=== PATIENT | male | born 1980 | race Caucasian/White ===

== ENCOUNTER 2017-08-04 07:09 | Day surgery (SDC) | payer BC ==
--- NOTE | 2017-08-03 15:55 | PREOP HP ---
DATE OF SERVICE: 08/04/2017 HISTORY OF PRESENT ILLNESS: The patient is a pleasant 36-year-old who is having difficulty with right-sided low back pain along with pain in his right hip and numbness in the right inguinal region and anterior thigh. The problem started on 04/21/2017 after lifting. He rates his pain as a 2/10 currently. He says in the evenings after work the pain is an 8/10. He says he walks with a crooked posture. Lying on his left side seems to help. Walking makes it worse. He has been taking ibuprofen, Tylenol and gabapentin. He has had epidural steroid injections, which did not help him significantly. He is in physical therapy again without significant help. He relates there were similar problems in 2010, although at that time he had problems with a right footdrop and pain which would radiate all the way down to his right lower extremity. With physical therapy and epidural steroid injections that problem has improved. PAST MEDICAL HISTORY: None noted. PAST SURGICAL HISTORY: Left knee meniscus repair 08/2015. FAMILY HISTORY: Hypertension. SOCIAL HISTORY: Employed as an ED physician. . Exercises daily. Denies substance abuse. Denies tobacco use. Drinks alcohol one to two times per week. Drinks coffee daily. ALLERGIES: No known drug allergies. CURRENT MEDICATIONS: Flonase, ibuprofen and gabapentin. REVIEW OF SYSTEMS: A 12-point review of systems was obtained and is noncontributory except for that mentioned above. PHYSICAL EXAMINATION: NEUROSURGERY EXAMINATION: GENERAL APPEARANCE: Alert, pleasant, in no acute distress. HEAD: Normocephalic and atraumatic. SKIN: Warm, dry. MUSCULOSKELETAL: Lumbar paraspinal muscle bulk is normal, restricted range of motion of the lumbar spine, [id number] tenderness of lower lumbar spine with palpation, normal range of motion of the lower extremities bilaterally. EXTREMITIES: No clubbing, cyanosis or edema. NEUROLOGIC: Alert and oriented x 3, normal recent and remote memory. Strength 5/5 in bilateral lower extremities, sensory was intact to light touch and bilateral lower extremities exhibit decreased sensation in the proximal right anterior thigh, reflexes were present and symmetric in the lower extremities bilaterally, negative straight leg raising bilaterally, and abnormal gait, scoliotic deformity toward the left as well as a slight forward flexed posture. IMAGING: Reviewed. I reviewed the lumbar MRI scan done recently. 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 There is central and right-sided disk protrusion at L2-L3, which does extend inferiorly through the disks below the disk space. Compared to a study done in 2011, this has increased in size. This is associated with moderately severe canal stenosis at this level. At L3-L4, there is moderate spinal stenosis. At L4-L5, there is moderately severe lumbar stenosis. At L5-S1, there is foraminal disk protrusion present on the right. ASSESSMENT: 1. Spinal stenosis, lumbar region without neurogenic claudication. 2. Intervertebral disk disorders with radiculopathy, lumbar region. PLAN: Based on the pain pattern, which suggests an upper lumbar lesion, I suspect the primary problem we are dealing with currently is at L2-L3. There are a number of treatment options and directions we could go. This extends from simple lumbar microdiskectomy at L2-L3 to lumbar laminectomy, which extends from L2-L3 through L4-L5 combined with removal of foraminal disk at L5-S1. At this point, especially in view of his young age, I would like to go more conservative. He is in excellent physical condition and has done very well when his symptoms occurred in 2010 with similar symptoms. I would have him undergo lumbar microsurgery with a right direct laminectomy and microdiskectomy at L2-L3 and see if this does not help him. If it does not, then my next step would be surgery at L4-L5 and removal of lateral disk at L5-S1. I am remaining very optimistic, however, that surgery at L2-L3 will stop his current problem. I cautioned him about his very aggressive physical exercise regimen. We discussed the technique of the surgery and the rationale as well as the risks and postoperative course that is to be expected. He would like to proceed. We will make the arrangements. CORINA BURNHAM MD DR: SHARON/elie JOB#: [id number] / [id number]
[~2017-08-04] VITALS: Ht 195.6 cm; Wt 106.6 kg
[~2017-08-04 07:09] MED LIST: ACET500T68 PO; BACITRACIN 50,000 UNIT in IV NORMAL SALINE 1000ML BAG 1,000 ML IRR ONE; BUPIVAC MPF-EPI 0.5%-1:200000 30 ML VIAL. ONE; GABA-586 PO; GELATIN SPONGE SIZE 100. ONE; HYDROmorphone 2 MG/ML VIAL IV PRN; IBUP-1007 PO; IV RINGERS,LACTATED 1000ML 1,000 ML IV SCH; KETOROLAC 60 MG/2 ML INJ FOR OR. ONE; LIDOCAINE 1% PF 2 ML VIAL. ID PRN; MORPHINE SULFATE 2 MG/ML DISP.SYRIN. IV PRN; ONDANSETRON PF 4 MG/2 ML VIAL. IV PRN; PROCHLORPERAZINE 10 MG/2 ML VIAL. IV PRN; THROMBIN TOPICAL 20,000 UNIT SPRAY.SYRN KIT TP ONE; ceFAZolin 2GM PREMIX 2 GM/50 ML BAG IV ONE; fentaNYL PF VIAL 100 MCG/2 ML VIAL IV PRN
[2017-08-04] MEDS ORDERED: REMIFENTANIL 2 MG VIAL. IV ONE (07:47)
[2017-08-04] MEDS ORDERED: fentaNYL PF VIAL 100 MCG/2 ML VIAL ONE (07:47)
[2017-08-04] MEDS ORDERED: 0.9 % SODIUM CHLORIDE 50 ML VIAL. IJ ONE (07:47)
[2017-08-04] MEDS ORDERED: LIDOCAINE 2% PF Vial for OR 5 ML VIAL. ONE (07:47)
[2017-08-04] MEDS ORDERED: PROPOFOL 20 ML IV ONE (07:47)
[2017-08-04] MEDS ORDERED: PROPOFOL 50 ML IV ONE ×2 (07:47→09:54)
[2017-08-04] MEDS ORDERED: ROCURONIUM 50 MG/5 ML VIAL. ONE (07:48)
[2017-08-04] MEDS ORDERED: SUCCINYLCHOLINE 200 MG/10 ML VIAL. ONE (07:48)
[2017-08-04] MEDS ORDERED: MIDAZOLAM HCL/PF 2 MG/2 ML VIAL. ONE (08:44)
[2017-08-04] MEDS ORDERED: DEXAMETHASONE SOD PHOS 20 MG/5 ML VIAL. ONE (09:32)
[2017-08-04] MEDS ORDERED: FAMOTIDINE 20 MG/2 ML VIAL ONE (09:32)
[2017-08-04] MEDS ORDERED: ONDANSETRON PF 4 MG/2 ML VIAL. ONE (09:32)
[2017-08-04] MEDS ORDERED: DESFLURANE > 120 MINUTES IH ONE (09:32)
--- NOTE | 2017-08-04 11:39 | DISCH ---
DISCHARGE INSTRUCTIONS Condition on Discharge Condition on Discharge: Stable Activity After Discharge Activity Instructions for Disc: Activity as tolerated, Avoid exertion Other activity instructions: no driving for a week Bathing Instructions: Shower-keep dressing dry Lifting Instructions after Dis: No heavy lifting, No pulling or pushing, Do not lift >10 pounds Diet after Discharge Additional Diet Restrictions: resume home diet Wound Incision Care Wound/Incision Care: Ice to area for comfort Other wound/incision instructi: may remove dressing in 48 hrs if dry then may shower, no soaking Contacting the after DC Call your doctor for: Concerns you may have Follow-Up Follow up with: Dr. Burnham in 2 weeks [phone] CORINA BURNHAM MD Aug 04, 2017 11:39
[2017-08-04] MEDS ORDERED: DOCU-109 PO (11:41)
[2017-08-04] MEDS ORDERED: METH-38 PO (11:41)
[2017-08-04] MEDS ORDERED: HYDR-2762 PO (11:41)
[2017-08-04] MEDS ORDERED: HYDROcodone/APAP 7.5/325MG 1 TAB TABLET PO PRN (12:00)
[2017-08-04 12:11] VITALS: BP 133/60
--- NOTE | 2017-08-07 20:18 | OP ---
DATE OF SURGERY: 08/04/2017 PREOPERATIVE DIAGNOSES: Herniated lumbar disk, right L2-L3 with severe right lumbar radiculopathy. POSTOPERATIVE DIAGNOSES: Herniated lumbar disk, right L2-L3 with severe right lumbar radiculopathy. OPERATION PERFORMED: Hemilaminotomy and microdiskectomy L2-L3, right. The operation was done with EMG monitoring, fluoroscopy and microscopic dissection. SOOT BLOWER: Tonja Graham APRN assisted with the surgery. She assisted with the exposure, diskectomy closure. 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 On imaging studies, he was complicated. He had diffuse lumbar spinal stenosis primarily on a congenital basis from small pedicles, but additionally at L2-L3, there was a herniated disk with an inferior fragment, which had progressed from a study done previously. The other areas in his lumbar spine had remained stable. I felt that based on his examination and the location of the herniated disk at L2-L3 on the right and his symptom complex that this was the primary problem he was experiencing. I spoke with him about surgical options. I felt that at his age, a wide laminectomy had significant drawbacks and that it would be best to attempt to deal with his problem through a simple lumbar microsurgical operation to decompress the L2-L3 in the right and remove the offending herniated disk which had enlarged. I discussed this with him in detail. He understood and he wished to go ahead. DESCRIPTION OF PROCEDURE: Following general endotracheal anesthesia, the patient was positioned prone on the [place] table with lumbar regions prepped and draped in standard fashion. YENI hose and AV impulse boots were applied for DVT prophylaxis. A microscope was draped. Fluoroscopy was draped and brought into the field. Monitoring was established. Ancef 2 grams was given. Using fluoroscopic guidance, incision was made directly over the L2-L3 interspace. I dissected down to skin and subcutaneous tissue and reflected the paraspinal muscles and placed a [place] microdisk retractor, brought with the microscope and using the high speed air drill, I burred down a generous hemilaminotomy and then trimmed away thickened ligamentum flavum working from medial to lateral. The dura was somewhat bulbous and under some pressure and as I removed the ligament, the dura moved laterally. I did perform a very generous laminotomy and fully decompressed the entire region. I used the blunt hook then to develop a plane between the exiting root and the dura and the underlying posterior ligament. Superiorly this was not difficult, but at the level of disk and inferiorly, then, the root was very tightly compressed and lifted posteriorly. I gently worked and found a plane, which would allow me to visualize the portion of the herniated disk and I did use a #11 blade and incised the annulus and ligament somewhat lateral location and then used a micropituitary to tease back several small disk fragments. As I worked, I was gradually able to free up the region which then allowed better gentle retraction. At this point, then I was able to pass a blunt hook and the micro blunt hook in the subligamentous position and hooked and grasped the herniated disk. I teased this back slightly grasped, but then with a micropituitary and pulled back and delivered to fairly large disk fragments which were inferiorly herniated. When these fragments were removed, the region was very well decompressed. I explored carefully. There was no further nerve compression. I gently then entered into the disk space and performed a diskectomy with pituitary rongeurs and following this, continued my exploration and assured myself the region was very well decompressed the dura, which had been tense and tight was now very relaxed and I was quite pleased. I did perform a generous partial foraminotomy during my approach to allow for gentle retraction of the exiting root. I irrigated copiously. I had to use small amounts of bone wax for any bone bleeding and there was minimal. Hemostasis throughout the operation was excellent. I irrigated copiously and removed the retractor, obtained hemostasis in the muscle and I closed the wound in layers with absorbable sutures. The skin was closed with a 4-0 subcuticular stitch. The operation went very well and the patient awakened in recovery room with marked improvement in his underlying symptoms. I was quite pleased with the surgery. CORINA BURNHAM MD DR: SHARON/elie JOB#: [id number] / [id number]
== END 2017-08-04 13:02 | disposition home or self-care (01) ==
LOC: SURG 07:09
PROVIDERS: ATTEND Neurological Surgery
DX: M51.16 Intervertebral disc disorders with radiculopathy, lumbar region (principal); Z86.69 Personal history of other diseases of the nervous system and sense organs; Z87.39 Personal history of other diseases of the musculoskeletal system and connective tissue; Z72.0 Tobacco use
CPT/HCPCS: 63030; 76000; 97161; J0330; J1100; J1885; J2250; J2405; J2704; J3010; J3490; J7030; S0028; J0690; J7120; J2001